=== PATIENT | male | born 1990 | race African-American/Black ===

== ENCOUNTER 2017-02-11 16:52 | Emergency (ER) | payer BC ==
[2017-02-11 16:59] VITALS: BP 124/65; PULSE 66; TEMP 98.5; BMI 21.6
[2017-02-11 17:52] LABS: URINE APPEARANCE SLCLOUDY; URINE BILIRUBIN NEGATIVE (NEGATIVE); URINE BLOOD NEGATIVE (NEGATIVE); URINE COLOR YELLOW; URINE GLUCOSE (UA) NEGATIVE (NEGATIVE); URINE KETONE 1+ (NEGATIVE); URINE LEUK ESTERASE TRACE (NEGATIVE); URINE NITRITE NEGATIVE (NEGATIVE); URINE PROTEIN NEGATIVE (NEGATIVE)
--- NOTE | 2017-02-11 18:09 | PDOC ---
History of Present Illness - General Chief Complaint: Hematuria Stated Complaint: BLOOD IN URINE Time Seen by Provider: 02/11/17 17:31 History Source: Patient Exam Limitations: No Limitations - History of Present Illness Initial Comments: 02/11/17 18:09 CHIEF COMPLAINT: Hematuria HISTORY OF PRESENT ILLNESS: This is an otherwise healthy 26 year old male who presents for evaluation of 3 days of dysuria and hematuria. He has noted some penile discharge. He denies fevers/chills, abdominal pain, flank pain, testicular swelling, or any other symptoms. He does note that he had sex with a woman that he is not in a monogamous relationship with one week ago without a condom. V/s on arrival are unremarkable. He has an appointment with a new PCP at [facility] on 02/24. REVIEW OF SYSTEMS: GENERAL/CONSTITUTIONAL: No fever or chills. No weakness. No weight change. HEAD, EYES, EARS, NOSE AND THROAT: No change in vision. No ear pain or discharge. No sore throat. GASTROINTESTINAL: No nausea, vomiting, diarrhea or constipation. GENITOURINARY: See HPI. SKIN: No rash or easy bruising. NEUROLOGIC: No headache, vertigo, loss of consciousness, or loss of sensation. ALLERGIC/IMMUNOLOGIC: No hives or skin allergy. No latex allergy. PHYSICAL EXAM: GENERAL: The patient is awake, alert, and fully oriented, in no acute distress. ENT: Pupils equal, round and reactive to light, extraocular movements intact, sclera anicteric, conjunctiva clear. Neck supple. LUNGS: Clear to auscultation bilaterally. Normal excursion. No respiratory distress or use of accessory muscles. CV: RRR, S1/S2, no MRG. Cap refill < 2 sec. ABDOMEN: Soft, non-distended, non-tender. No CVA tenderness. EXTREMITIES: Normal range of motion, no edema. NEUROLOGICAL: Normal speech, normal gait. CN II-XII grossly intact. PSYCH: Normal mood, normal affect. SKIN: Warm, dry, normal turgor, no rashes or lesions noted. Past History - Past Medical History Allergies/Adverse Reactions: Allergies Allergy/AdvReac Type Severity Reaction Status Date / Time No Known Allergies Allergy Verified 02/11/17 16:57 Home Medications: Ambulatory Orders NK [No Known Home Medication] 02/11/17 Other medical history: DENIES. - Psycho/Social/Smoking Cessation Hx Suicidal Ideation: No Smoking History: Never smoked *Physical Exam - Vital Signs Last Vital Signs Temp Pulse Resp BP Pulse Ox 98.5 F 66 19 124/65 100 02/11/17 16:57 02/11/17 16:57 02/11/17 16:57 02/11/17 16:57 02/11/17 16:57 ED Treatment Course - ADDITIONAL ORDERS Additional order review: Laboratory Results 02/11/17 17:40 Urine Color Yellow Urine Appearance Slcloudy Urine pH 6.0 Urine Protein Negative Urine Glucose (UA) Negative Urine Ketones 1+ H Urine Blood Negative Urine Nitrite Negative Urine Bilirubin Negative Urine Urobilinogen 2.0 Medical Decision Making - Medical Decision Making 02/11/17 18:27 A/P: 26 year old male with dysuria and hematuria. - UA: no RBCs or WBCs noted - GC/chlamydia sent - Empiric tx for GC/CT - Followup instructions and return precautions reviewed *DC/Admit/Observation/Transfer Diagnosis at time of Disposition: Hematuria Qualifiers: Hematuria type: unspecified type Qualified Code(s): R31.9 - Hematuria, unspecified - Discharge Dispostion Admit: No - Patient Instructions Printed Discharge Instructions: DI for Hematuria Additional Instructions: -You were treated with a one-time dose of antibiotics -You will receive a call if any of your test results are positive, or you may call here in 2-3 days to check on your results -Follow up with Dr. Allen as scheduled -Return here for fevers or any other concerning symptoms
[2017-02-11] MEDS ORDERED: AZITHROMYCIN 1 GM PACKET PO ONE (18:19)
[2017-02-11] MEDS ORDERED: AZITHROMYCIN 1 GM PACKET ONE (18:21)
[2017-02-11 20:50] LABS: URINE RBC 1 /hpf (0-3); URINE WBC 10 /hpf (3-5)
[2017-02-11 20:51] LABS: URINE BACTERIA FEW /hpf (NONE SEEN); URINE MUCUS MANY
== END 2017-02-11 18:36 | disposition home or self-care (01) ==
LOC: JERFT 16:52
DX: R36.9 Urethral discharge, unspecified (principal); R31.9 Hematuria, unspecified
CPT/HCPCS: 36415; 81003; 81015; 87077; 87086; 87491; 87591; 99281-25